=== PATIENT | male | born 1950 | race Caucasian/White ===

== ENCOUNTER → 2018-08-18 | Outpatient (CLI) | payer MEDICARE, OTHER | END | disposition home or self-care (01) | LOC: SURG 09:33 | PROVIDERS: ATTEND Anesthesiology Pain Medicine | DX: M48.061 Spinal stenosis, lumbar region without neurogenic claudication (principal); G89.29 Other chronic pain | CPT/HCPCS: 99204 ==

== ENCOUNTER → 2019-10-06 | Outpatient (CLI) | payer OTHER | END | disposition home or self-care (01) | LOC: LAB 11:17 | PROVIDERS: ATTEND Internal Medicine | DX: Z01.818 Encounter for other preprocedural examination (principal); Z11.59 Encounter for screening for other viral diseases | CPT/HCPCS: C9803; U0003; 36415 ==

== ENCOUNTER → 2019-10-10 | Outpatient (CLI) | payer OTHER | END | disposition home or self-care (01) | LOC: LAB 12:55 | PROVIDERS: ATTEND Nurse Anesthetist, Certified Registered | DX: Z01.818 Encounter for other preprocedural examination (principal); Z11.59 Encounter for screening for other viral diseases | CPT/HCPCS: 36415; U0003 ==

== ENCOUNTER → 2020-03-07 | Outpatient (CLI) | payer OTHER ==
[~2020-03-07] MED LIST: 0.9 % SODIUM CHLORIDE 10 ML VIAL. ONE; ALPR2TAB2 PO; AMLO1TAB93 PO; ASPI-630 PO; ATOR10TA60 PO; CYCL-331 PO; DEXAMETHASONE SOD PHOS 10 MG/ML VIAL. ONE; IOHEXOL 300 MG/ML 50 ML VIAL. ONE; LIDOCAINE 1% PF 30 ML VIAL. ONE; LISI20TA18 PO; METH-184 PO; METH5TAB85 PO; OMEP40CA7 PO; TRAM50TA PO
[2020-03-07 12:07] VITALS: BP 138/65
== END | disposition home or self-care (01) ==
LOC: SURG 11:11
PROVIDERS: ATTEND Anesthesiology
DX: M54.16 Radiculopathy, lumbar region (principal); M48.061 Spinal stenosis, lumbar region without neurogenic claudication; Z79.899 Other long term (current) drug therapy; Z79.82 Long term (current) use of aspirin
CPT/HCPCS: 62323; 72275; J1100; Q9967

== ENCOUNTER → 2020-04-18 | Outpatient (CLI) | payer OTHER ==
[~2020-04-18] MED LIST changes: -0.9 % SODIUM CHLORIDE 10 ML VIAL. ONE; -DEXAMETHASONE SOD PHOS 10 MG/ML VIAL. ONE; -IOHEXOL 300 MG/ML 50 ML VIAL. ONE; -LIDOCAINE 1% PF 30 ML VIAL. ONE; +OMEP40CA45 PO; -OMEP40CA7 PO
[2020-04-18 11:47] VITALS: BP 134/44
== END | disposition home or self-care (01) ==
LOC: SURG 11:38
PROVIDERS: ATTEND Anesthesiology
DX: M54.16 Radiculopathy, lumbar region (principal); M79.18 Myalgia, other site; M48.061 Spinal stenosis, lumbar region without neurogenic claudication; Z79.899 Other long term (current) drug therapy; Z79.82 Long term (current) use of aspirin
CPT/HCPCS: 99213; G0463

== ENCOUNTER → 2020-05-09 | Day surgery (SDC) | payer OTHER ==
[~2020-05-09] MED LIST changes: +BUPIVACAINE MPF 0.25% 10 ML VIAL. ONE; +LIDOCAINE 1% PF 30 ML VIAL. ONE
[2020-05-09 14:24] VITALS: BP 125/61
== END | disposition home or self-care (01) ==
LOC: SURG 13:25
PROVIDERS: ATTEND Anesthesiology
DX: M47.816 Spondylosis without myelopathy or radiculopathy, lumbar region (principal); M79.18 Myalgia, other site; Z79.899 Other long term (current) drug therapy; Z79.82 Long term (current) use of aspirin; M48.061 Spinal stenosis, lumbar region without neurogenic claudication
CPT/HCPCS: 64493; 64494; J3490

== ENCOUNTER → 2020-06-20 | Day surgery (SDC) | payer OTHER ==
[~2020-06-20] MED LIST changes: -BUPIVACAINE MPF 0.25% 10 ML VIAL. ONE; -LIDOCAINE 1% PF 30 ML VIAL. ONE
[2020-06-20 14:07] VITALS: BP 136/63
== END | disposition home or self-care (01) ==
LOC: SURG 13:53
PROVIDERS: ATTEND Anesthesiology
DX: M47.816 Spondylosis without myelopathy or radiculopathy, lumbar region (principal); M79.18 Myalgia, other site; M48.061 Spinal stenosis, lumbar region without neurogenic claudication; Z79.899 Other long term (current) drug therapy; Z79.82 Long term (current) use of aspirin
CPT/HCPCS: 99213; G0463

== ENCOUNTER → 2020-07-18 | Day surgery (SDC) | payer OTHER ==
[~2020-07-18] MED LIST changes: +BUPIVACAINE MPF 0.25% 30 ML VIAL. ONE; +LIDOCAINE 1% PF 30 ML VIAL. ONE
[2020-07-18 14:22] VITALS: BP 129/70
== END | disposition home or self-care (01) ==
LOC: SURG 13:14
PROVIDERS: ATTEND Anesthesiology
DX: M47.816 Spondylosis without myelopathy or radiculopathy, lumbar region (principal); M48.061 Spinal stenosis, lumbar region without neurogenic claudication; Z79.899 Other long term (current) drug therapy; Z79.82 Long term (current) use of aspirin
CPT/HCPCS: 64493; 64494; J3490

== ENCOUNTER 2021-02-01 11:39 | Emergency (ER) | payer OTHER ==
[~2021-02-01] VITALS: Ht 167.6 cm; Wt 68.0 kg
[~2021-02-01 11:39] MED LIST changes: -BUPIVACAINE MPF 0.25% 30 ML VIAL. ONE; -CYCL-331 PO; +CYCL10TA19 PO; -LIDOCAINE 1% PF 30 ML VIAL. ONE; -OMEP40CA45 PO; +OMEP40CA7 PO
[2021-02-01 12:10] VITALS: BP 136/53
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
== END 2021-02-01 13:25 | disposition home or self-care (01) ==
LOC: ER 11:39
DX: M54.2 Cervicalgia (principal); V43.52XA Car driver injured in collision with other type car in traffic accident, initial encounter; Y93.89 Activity, other specified; Y92.488 Other paved roadways as the place of occurrence of the external cause; Y99.8 Other external cause status
CPT/HCPCS: 72040; 72072; 99284-25

== ENCOUNTER 2021-06-19 17:20 | Observation (INO) | payer OTHER ==
[~2021-06-19] VITALS: Ht 167.6 cm; Wt 68.0 kg
--- NOTE | 2021-06-19 17:31 | PHYS DOC ---
Past History Past Surgical History: Cervical Fusion (PHILL LOPEZ MD) Alcohol Use: Occasionally (PHILL LOPEZ MD) General Adult EDM: Chief Complaint: WEAKNESS/GENERALIZED HPI: HPI: Patient is a 70-year-old male brought in by EMS for weakness and falls. Patient says over the past 3 days he has had no appetite and has not had a bowel movement. States he is fallen 3 times today. Has had to have his son help him get back up, has not able to get himself up off the floor. Patient denies any head injury or loss of consciousness. Complaining of pain in bilateral abdomen, worse on the left. Patient states he has a history of BPH and urinary retention. Denies any vomiting, fevers, chills. States has had a slight cough that is nonproductive. Has had his Covid, influenza, and pneumonia vaccines. (PHILL LOPEZ MD) Review of Systems: Review of Systems: All other systems within normal limits except for as noted in the HPI (PHILL LOPEZ MD) Allergies: Allergies: Allergies Coded Allergies Type Severity Reaction Last Updated Verified gabapentin Adverse Reaction Unknown Nausea 02/01/21 Yes (PHILL LOEPZ MD) Physical Exam: PE: Constitutional: Well developed, well nourished, no acute distress, non-toxic appearance. [] HENT: Normocephalic, atraumatic, bilateral external ears normal, nose normal. [] Eyes: PERRLA, conjunctiva normal, no discharge. [] Neck: No rigidity, supple, no stridor. [] Cardiovascular: Regular rate and rhythm, brisk cap refill [] Lungs & Thorax: Non labored symmetric respirations, no tachypnea or respiratory distress [] Abdomen: Soft, nondistended, bilateral tenderness palpation in lower abdomen, no guarding or rebound. Skin: Warm, dry, no erythema, no rash. [] Back: Unremarkable Extremities: No deformities, range of motion grossly intact, no lower extremity edema [] Neurologic: Alert and oriented X 3, no focal deficits noted. [] Psychologic: Affect normal, judgement normal, mood normal. [] (PHILL LOPEZ MD) EKG: EKG: Sinus rhythm, heart rate 88 bpm, normal axis, no STEMI [] (PHILL LOPEZ MD) Radiology/Procedures: Radiology/Procedures: [] (PHILL LOPEZ MD) Heart Score: C/O Chest Pain: N/A Risk Factors: Risk Factors: DM, Current or recent (<one month) smoker, HTN, HLP, family history of CAD, obesity. Risk Scores: Score 0 - 3: 2.5% MACE over next 6 weeks - Discharge Home Score 4 - 6: 20.3% MACE over next 6 weeks - Admit for Clinical Observation Score 7 - 10: 72.7% MACE over next 6 weeks - Early Invasive Strategies (PHILL LOPEZ MD) Course & Med Decision Making: Course & Med Decision Making Pertinent Labs and Imaging studies reviewed. (See chart for details) [] (PHILL LOPEZ MD) Course & Med Decision Making Patient care handed off to me at checkout pending disposition. Patient awake alert and oriented no acute distress. NIH of 0. Laboratory analysis not concerning. EKG and troponin not concerning. Imaging of the head through the pelvis not concerning. Even though patient's laboratory analysis work-up and imaging are reassuring, patient appears to be having some trouble thriving at home by himself. Due to the concern for continued falling and failure to thrive at home by himself he was admitted to [facility]. Patient grateful, verbalized understanding and agreed with plan of admission. (AUGUSTUS ARORA MD) Dragon Disclaimer: Dragon Disclaimer: This electronic medical record was generated, in whole or in part, using a voice recognition dictation system. (PHILL LOPEZ MD) Departure Departure: Impression: Primary Impression: Failure to thrive Additional Impressions: Fall at home TAMRA (acute kidney injury) Disposition: ADMITTED INPATIENT Admitting Physician: Joshua Borges (AUGUSTUS ARORA MD) Condition: STABLE Referrals: ALYSSA SCALES MD (PCP) PHILL LOPEZ MD Jun 19, 2021 17:31 AUGUSTUS ARORA MD Jun 19, 2021 21:01
--- NOTE | 2021-06-19 17:50 | EKG ---
[address] [address] Test Date: 2021-06-19 Test Time: 17:36:58 Pat Name: SARIKA FARMER Department: Room: Gender: M Home Health Aid: [facility] : 1950 Requested By: PHILL LOPEZ Order Number: [id number] Reading MD: Thomas Julian Measurements Intervals Prospect Rate: 88 P: 57 DE: 146 QRS: 48 QRSD: 82 T: 75 QT: 334 QTc: 407 Interpretive Statements SINUS RHYTHM NORMAL ECG RI6.02 No previous ECG available for comparison Electronically Signed On 06-29-2021 9:03:12 CDT by Thomas Julian
[2021-06-19] MEDS ORDERED: IOHEXOL 350 MG/ML 100 ML VIAL. IV ONE (18:00)
[2021-06-19 18:02] LABS: BASO % 0 % (0-3); EOS % 0 % (0-3); HEMATOCRIT 34.9 % (39.0-53.0); HEMOGLOBIN 11.7 g/dL (13.0-17.5); LYMPH # 0.8 x10^3/uL (1.0-4.8); LYMPH % 18 % (24-48); MEAN CORPUSCULAR HEMOGLOBIN 31 pg (25-35); MEAN CORPUSCULAR HGB CONC 33 g/dL (31-37); MEAN CORPUSCULAR VOLUME 93 fL (79-100); MONO # 0.5 x10^3/uL (0.0-1.1); MONO % 12 % (0-9); NEUT # 3.1 x10^3uL (1.8-7.7); NEUT % 70 % (31-73); PLATELET COUNT 151 x10^3/uL (140-400); RED BLOOD COUNT 3.76 x10^6/uL (4.30-5.70); RED CELL DISTRIBUTION WIDTH 13.6 % (11.5-14.5); WHITE BLOOD COUNT 4.5 x10^3/uL (4.0-11.0)
[2021-06-19 18:07] LABS: CALCIUM 8.7 mg/dL (8.5-10.1); CREATININE 1.5 mg/dL (0.7-1.3); POTASSIUM 3.9 mmol/L (3.5-5.1)
[2021-06-19 18:20] LABS: ALBUMIN 3.6 g/dL (3.4-5.0); ALBUMIN/GLOBULIN RATIO 1.1 (1.0-1.7); MAGNESIUM 1.8 mg/dL (1.8-2.4); PHOSPHORUS 3.6 mg/dL (2.6-4.7); TOTAL BILIRUBIN 0.3 mg/dL (0.2-1.0); TOTAL PROTEIN 6.8 g/dL (6.4-8.2)
--- NOTE | 2021-06-19 18:47 | RAD ---
Exam: CT head and cervical spine INDICATION: Low abdominal pain, fall TECHNIQUE: Sequential axial images through the head and cervical spine were obtained without the admi nistration of IV contrast. Exposure: One or more of the following in the visualized dose reduction techniques were utilized for this examination: 1. Automated exposure control 2. Adjustment of the MA and/or KV according to patient size 3. Use of iterative of reconstructive technique Comparisons: None FINDINGS: Head: No focal parenchymal lesion or hemorrhage is identified. There is no midline shift or sulcal effaceme nt. Mild patchy hypodensity in the periventricular white matter. No acute vascular territory infarction i s identified. Hendrickson-white distinction is preserved. The ventricular system is within normal limits without compression hydrocephalus. The basal cisterns are well maintained. The visualized portions of the paranasal sinuses and mastoid air cells are well-pneumatized. No acute fractures. Cervical spine: Posterior cervical fusion hardware extending from C3 to C6 with laminectomy changes also noted. Vertebral body heights and alignment are well-maintained. Fracture to the cervical spine is not identified. Mild multilevel spondylotic change in cervical spine with degenerative disc disease greatest at C3-C4 , C4-C5 and C5-6. Visualized paraspinal soft tissues are unremarkable. IMPRESSION: No acute intracranial abnormality. Negative CT C-spine for acute traumatic injury. Electronically signed by: Sherry Becker MD (06/19/2021 6:45 PM) [facility]
--- NOTE | 2021-06-19 19:08 | RAD ---
Exam: CT of chest, abdomen and pelvis with contrast INDICATION: Lower abdominal pain, fall TECHNIQUE: Sequential axial images through the chest, abdomen and pelvis obtained following the admin istration of 75 mL of Isovue-370 IV contrast. Sagittal and coronal reformatted images were reconstruc rashel from the axial data and reviewed. 3-D reformatted images were reconstructed from the axial data a nd reviewed. Exposure: One or more of the following in the visualized dose reduction techniques were utilized for this examination: 1. Automated exposure control 2. Adjustment of the MA and/or KV according to patient size 3. Use of iterative of reconstructive technique Comparisons: None FINDINGS: Visualized portions of the thyroid are unremarkable. No enlarged mediastinal lymph nodes are identifi ed. Right size is normal. No pericardial effusion. Thoracic aorta has a normal course and caliber. Pulmon godwin artery is not enlarged. No pulmonary embolus identified within the main, lobar or segmental pulmo nary arteries. Airways are patent. Mild bronchial wall thickening is noted. No consolidation or pneumothorax. No dilan picious lung nodules. No pleural effusion or thickening. Liver, spleen, pancreas, gallbladder and adrenals are unremarkable. No perinephric inflammation or hydronephrosis. No renal or ureteral calculi are identified. Bladder is partially distended and appears to have mild wall thickening. Prostate is not enlarged. Large and small bowel are unremarkable. Appendix is nonidentified. No free intra-abdominal air or flu id. No obstruction. Abdominal aorta has a normal course and caliber. Abdominal vasculature is patent. No enlarged intra-abdominal lymph nodes are identified. No suspicious osseous lesions or acute fractures. No suspicious osseous lesions or acute fractures. IMPRESSION: 1. No pulmonary embolus identified within the main, lobar or segmental pulmonary arteries. 2. No sequela of acute traumatic injury identified within the chest, abdomen or pelvis. Electronically signed by: Sherry Becker MD (06/19/2021 7:05 PM) [facility]
[2021-06-19] MEDS ORDERED: IV RINGERS SOLUTION,LACTATED 1,000 ML IV ONE (21:15)
[2021-06-19 22:07] LABS: BARBITURATES NEG (NEG); BENZODIAZEPINES NEG (NEG); CANNABINOIDS NEG (NEG); COCAINE NEG (NEG); METHADONE NEG (NEG); OPIATES NEG (NEG); PHENCYCLIDINE NEG (NEG)
[2021-06-19 22:12] LABS: AMPHETAMINE/METHAMPHETAMINE NEG (NEG)
[2021-06-19 22:15] LABS: CLARITY,URINE CLEAR; COLOR,URINE YELLOW; GLUCOSE,URINE NEG (NEG); NITRITE,URINE NEG (NEG); RBC,URINE OCC /HPF (0-2); UROBILINOGEN,URINE 0.2 mg/dL (0.2 mg/dL)
[2021-06-19 22:16] LABS: BACTERIA,URINE FEW /HPF (0-FEW); WBC,URINE >40 /HPF (0-4)
[2021-06-19 22:16] LABS: INFLUENZA A PATIENT NEGATIVE (NEGATIVE); INFLUENZA B PATIENT NEGATIVE (NEGATIVE)
[2021-06-19 23:45] VITALS: BP 160/77
[2021-06-20] VITALS (8 sets, daily range): BP systolic 123–175; BP diastolic 65–82
[2021-06-20 06:12] LABS: BASO % 1 % (0-3); EOS % 0 % (0-3); HEMATOCRIT 34.2 % (39.0-53.0); HEMOGLOBIN 11.5 g/dL (13.0-17.5); LYMPH # 0.9 x10^3/uL (1.0-4.8); LYMPH % 17 % (24-48); MEAN CORPUSCULAR HEMOGLOBIN 31 pg (25-35); MEAN CORPUSCULAR HGB CONC 34 g/dL (31-37); MEAN CORPUSCULAR VOLUME 93 fL (79-100); MONO # 0.8 x10^3/uL (0.0-1.1); MONO % 15 % (0-9); NEUT # 3.3 x10^3uL (1.8-7.7); NEUT % 67 % (31-73); PLATELET COUNT 136 x10^3/uL (140-400); RED BLOOD COUNT 3.68 x10^6/uL (4.30-5.70); RED CELL DISTRIBUTION WIDTH 13.6 % (11.5-14.5)
[2021-06-20 06:22] LABS: CALCIUM 8.4 mg/dL (8.5-10.1); CREATININE 1.3 mg/dL (0.7-1.3); GFR 54.3; POTASSIUM 3.7 mmol/L (3.5-5.1)
[2021-06-20] MEDS ORDERED: NON FORMULARY ITEM (Alprazolam (Xanax) 2 MG) PO PRN (15:45)
[2021-06-20] MEDS ORDERED: traMADol 50 MG TABLET PO PRN (15:45)
--- NOTE | 2021-06-20 17:02 | HP ---
DATE OF SERVICE: 06/20/2021 ADMIT DATE: 06/19/2021 HISTORY OF PRESENT ILLNESS: The patient is a 70-year-old male patient who presented to the Emergency Room with a complaint of generalized weakness and recurrent falls that has been going on for the last 3 days. He also complained of anorexia and has not had any bowel movement. On the day of admission, he has fallen 3 times. Has had to have his son helped him to get back up and has not been able to get himself off the floor. The patient denies any head injury or loss of consciousness. Did complain of pain in bilateral abdomen, worse in the left side. She stated that he has benign prostatic hypertrophy and urinary retention. He apparently was started recently by his primary care physician, Dr. Cary on Flomax and that made his incontinence worse according to him. He denied any nausea or vomiting. Denied any diarrhea, but did complain of constipation. Did have a slight cough that is nonproductive. Has had his COVID vaccine, influenza and pneumonia vaccines. He was extensively investigated in the Emergency Room and has had lab work as well as imaging studies. His lab work showed that he has slightly impaired kidney function with serum creatinine of 1.5. He has also mild normochromic normocytic anemia, normal white cell count and platelets. His D-dimer was only 0.36. Urinalysis showed that he has more than a small amount of leukocyte esterase, more than 40 wbc's and few bacteria. Toxic screen was negative and his influenza A and B as well as coronavirus by PCR were negative. Has had a CT scan of the head and cervical spine, which showed no acute intracranial abnormalities and negative CT scan C-spine for acute traumatic injury. He also had CT scan of the chest, abdomen and pelvis with contrast and it showed that the patient's visualized portion of the thyroid are unremarkable. No enlarged mediastinal lymph nodes are identified. The heart size is normal. No pericardial effusion. Thoracic aorta has a normal course and caliber. Pulmonary arteries are not enlarged. No pulmonary emboli identified within the main lobar and segmental pulmonary arteries. Airways are patent. Mild bronchial wall thickening is noted. No consolidation, pneumothorax or effusion and basically the patient has no pulmonary embolus identified within the main lobar or segmental pulmonary arteries. There is no sequelae of acute traumatic injury identified within the chest, abdomen and pelvis. The patient was admitted with generalized weakness and recurrent falls, has also acute kidney injury. The patient was given a liter of lactated Ringer. PAST MEDICAL HISTORY: Significant for hypertension; hyperlipidemia; benign prostatic hypertrophy; severe sensorineural deafness, requiring bilateral hearing aid. PAST SURGICAL HISTORY: Significant for neck surgery, bilateral cataract extraction. Has had colonoscopy. ALLERGIES: ALLERGIC TO GABAPENTIN. MEDICATIONS: He is currently on the following medications: He is on cyclobenzaprine 10 mg daily, atorvastatin 10 mg at bedtime, amlodipine/olmesartan or Dionne 10/20 mg daily, lisinopril 20 mg once a day, aspirin 81 mg once a day, tramadol 50 mg every 6 hours, alprazolam 2 mg p.o. every 6 hours, omeprazole 40 mg daily. He is on methimazole 15 mg daily. FAMILY HISTORY: He has 3 brothers still alive and 2 brothers are . He has all 3 sisters . His father when he was only 3 years old and his mother remarried and adopted him, she at age of 85. SOCIAL HISTORY: He is , has 1 son and 1 daughter and 1 stepdaughter. He is ex-smoker, quit about 10 years ago. He occasionally or rarely drinks alcohol and he is a retired warehouse selector. REVIEW OF SYSTEMS: The patient has bilateral cataract requiring cataract extraction, but denied any glaucoma or macular degeneration. Has severe bilateral sensorineural deafness, requiring bilateral hearing aids. Denied any stuffy nose, nosebleed or postnasal drip. Denied any sore throat, sore tongue, toothache, hoarseness of voice or difficulty swallowing. Denied any nausea, vomiting, diarrhea, but did complain of constipation. He does have dysuria and frequency as well as nocturia. Denied any hematuria. Denied any chest pain, shortness of breath, orthopnea or paroxysmal nocturnal dyspnea. Did complain of cough, which is nonproductive. Denied any palpitation, or lightheadedness. He did complain of dizziness actually especially when he stands or sits on the edge of the bed and tries to stand. PHYSICAL EXAMINATION: GENERAL: On arrival to the Emergency Room, the patient looked well and was clearly in no apparent respiratory distress. He is somewhat pale, not jaundiced, cyanosed, no lymphadenopathy, no thyromegaly, no jugular venous distention. No limb edema. VITAL SIGNS: His heart rate was 93, blood pressure was 166/79, temperature was 98, respiratory rate was 16 and oxygen saturation was 99% on room air. HEAD, EYES, EARS, NOSE, AND THROAT: Normocephalic, atraumatic. NECK: Supple. HEART: Normal first and second heart sounds. No gallop, rub or murmur. CHEST: Clear to auscultation, no crepitation or rhonchi. ABDOMEN: Distended, soft, nontender. NEUROLOGIC: He was awake, alert, responding appropriately. Cranial nerves intact. He moves extremities without difficulty. He stated he ambulates with a walker and a cane. LABORATORY WORK: On arrival showed a white cell count of 4.5, hemoglobin 11.7, hematocrit 35, MCV 93, and platelet count of 151,000 with a normal manual differential. His chemistry showed a serum sodium 140, potassium 3.9, chloride 104, bicarbonate 25, anion gap of 11, BUN 20, creatinine 1.5. Estimated GFR was 46 mL per minute. Glucose 117. Lactic acid was 1.3, calcium was 8.7, phosphorus 3.6, magnesium was 1.8. Total bilirubin, AST, ALT, alkaline phosphatase were normal. Troponin I high sensitivity was only 17. Beta natriuretic peptide was 874. Total protein 6.8, albumin 3.6. His D-dimer was 0.36. Urinalysis showed the urine was yellow, clear with a pH of 5.5, specific gravity 1.015, The urine was negative for protein, glucose, trace of ketones, trace of blood, negative for nitrite, small amount of leukocyte esterase, occasional rbc's, more than 40 wbc's, very few bacteria. Toxic screen was negative and his influenza A and B were negative as well as coronavirus by PCR was negative. ASSESSMENT AND PLAN: In summary, this is a 70-year-old male patient who was admitted with generalized weakness and recurrent falls. He fell 3 times yesterday and the patient received 1 liter of lactated Ringer. The original impression by the ER physician is that he just failure to thrive and the patient was admitted just for physical therapy; however, he was admitted basically to consult the physical therapy as well as occupational therapy and decide the further management accordingly. NEHAL/CAROLINE/SORIN DR: NEHAL/bj TID: [id number]
[2021-06-20] MEDS ORDERED: ALPRAZolam 0.5 MG TABLET PO PRN ×2 (19:15→19:30)
[2021-06-20] MEDS: amLODIPine BESYLATE 10 MG TABLET PO SCH (19:30)
[2021-06-20] MEDS ORDERED: AMLO-187 PO (19:35)
[2021-06-20] MEDS ORDERED: METO25TA4 PO (19:35)
[2021-06-20] MEDS ORDERED: ALPR0.5T6 PO (19:35)
[2021-06-20] MEDS ORDERED: CELE200C PO (19:35)
[2021-06-20] MEDS ORDERED: METOPROLOL TART IMMED RELEASE 25 MG TABLET. PO ONE (19:45)
[2021-06-20] MEDS ORDERED: CELECOXIB 100 MG CAPSULE PO SCH (21:00)
[2021-06-20] MEDS: METOPROLOL TART IMMED RELEASE 25 MG TABLET. PO SCH (21:13)
--- NOTE | 2021-06-21 02:54 | PN ---
DATE: 06/20/2021 SUBJECTIVE: The patient is resting, slightly propped up in bed, in no apparent distress. He continued to feel dizzy, although he has not had any falls here so far. Denied any chest pain. Denied anything spinning around. PHYSICAL EXAMINATION: GENERAL: When I examined him today, he looked pale, not jaundiced or cyanosed. No lymphadenopathy, no thyromegaly, no jugular venous distention. No lower limb edema. VITAL SIGNS: His heart rate was 87, blood pressure was 161/72, temperature was 98.3, respiratory rate was 18 and oxygen saturation was 97% on room air. HEAD, EYES, EARS, NOSE, AND THROAT: Normocephalic, atraumatic. NECK: Supple. HEART: Normal first and second heart sounds. No gallop or murmur. CHEST: Clear to auscultation. No crepitation or rhonchi. ABDOMEN: Distended, soft, nontender. No guarding or rigidity. No organomegaly. All hernial orifice intact. Bowel sounds normal. NEUROLOGIC: He was awake, alert, responding appropriately. All cranial nerves intact. He moves extremities without difficulty. However, he does continue to complain of being dizzy when he attempts to get out of the bed. His intake and output are incompletely recorded. LABORATORY DATA: Today showed a white cell count of 5000, hemoglobin 11.5, hematocrit 34, MCV 93 and platelet count of 136,000 with normal manual differential. His chemistry showed serum sodium 144, potassium 3.7, chloride 107, bicarbonate 25, anion gap of 12, BUN 19, creatinine 1.3. Estimated GFR was 54 mL per minute. His glucose was 92 and calcium was 8.4. ASSESSMENT: This is a 70-year-old male patient feeling dizzy and has had multiple falls. The patient is on a multitude of medications that might be contributing to this including multiple antihypertensive medications including 20 mg of lisinopril, 10 mg of amlodipine and 20 mg Benicar. He is also on cyclobenzaprine 10 mg daily. He was started on Flomax recently and he is also on alprazolam 2 mg every 6 hours. PLAN: My plan is to obviously check his orthostatics. I am going to start him on telemetry to monitor his heart rate and see if he has any evidence of arrhythmia or high-grade heart block. I will check his orthostatics and will definitely cut down or discontinue his cyclobenzaprine and discontinue also the amlodipine and olmesartan. He is apparently thyrotoxic and he is already on methimazole. We will check his thyroid function also. We will consult the senior technical support analyst to assist with his management. QUANG DR: Ada TID: [id number]
[2021-06-21 06:09] VITALS: BP 144/75
[2021-06-21 06:13] LABS: HEMATOCRIT 34.1 % (39.0-53.0); HEMOGLOBIN 11.3 g/dL (13.0-17.5); RED BLOOD COUNT 3.66 x10^6/uL (4.30-5.70); RED CELL DISTRIBUTION WIDTH 13.6 % (11.5-14.5); WHITE BLOOD COUNT 5.2 x10^3/uL (4.0-11.0)
[2021-06-21 06:42] LABS: CALCIUM 8.5 mg/dL (8.5-10.1); CREATININE 1.2 mg/dL (0.7-1.3); GFR 59.5; POTASSIUM 3.7 mmol/L (3.5-5.1); TOTAL BILIRUBIN 0.2 mg/dL (0.2-1.0); TOTAL PROTEIN 6.1 g/dL (6.4-8.2)
[2021-06-21] MEDS ORDERED: PANTOPRAZOLE 40 MG TABLET. PO SCH (07:30)
--- NOTE | 2021-06-21 08:21 | PDOC2 ---
OH BARNETT AKI 06/21/21 0820: CARDIAC CONSULT DATE OF CONSULT DOS: DATE: 06/21/21 TIME: 08:13 REASON FOR CONSULT Reason for Consult recurrent syncope REFERRING PHYSICIAN Referring Physician Dr. Borges SOURCE Source: Chart review, Patient HPI History of Present Illness This is a 70 yo male who presented secondary to weakness, falls, and decreased appetite. Patient has 3 falls on day of arrival. Luckily, son was there to assist him in getting up as he reports his legs are weak when he falls. Cannot describe falls. Denies any precipitating dizziness, lightheadedness. Does no trip and fall. Not sure if his legs give out. Reports that he "just falls". Bill any LOC with falls. Does reports that he has hit his head. Falls do not always occur upon standing. He can fall when he has been up for awhile or is walking. He denies any chest pain, shortness of breath, palpitations, diaphoresis, or nausea/vomiting. PAST MEDICAL HISTORY Cardiovascular: CAD, HTN, hyperipidemia Psych: Anxiety Renal/: Benign prostatic enlarg. Endocrine: Hypothyroidism PAST SURGICAL HISTORY Past Surgical History: Cataract Removal, Other (neck surgery ) FAMILY HISTORY Family History: Other (noncontributory ) SOCIAL HISTORY Smoke: Quit ALCOHOL: rare Drugs: None Lives: Alone CURRENT MEDICATIONS Current Medications Current Medications Iohexol (Omnipaque 350 Mg/ml) 100 ml 1X ONCE IV Last administered on 06/19/21at 18:25; Start 06/19/21 at 18:00; Stop 06/19/21 at 18:16; Status DC Lactated Ringer's 1,000 ml @ 100 mls/hr 1X ONCE IV Last administered on 06/19/21at 23:21; Start 06/19/21 at 21:15; Stop 06/20/21 at 07:14; Status DC Aspirin (Aspirin Chewable) 81 mg DAILY PO ; Start 06/21/21 at 09:00 Atorvastatin Calcium (Lipitor) 10 mg DAILY PO ; Start 06/21/21 at 09:00 Cyclobenzaprine HCl (Flexeril) 10 mg DAILY PO ; Start 06/21/21 at 09:00; Stop 06/20/21 at 16:04; Status DC Lisinopril (Prinivil) 20 mg DAILY PO ; Start 06/21/21 at 09:00; Stop 06/20/21 at 16:05; Status DC Methimazole (Tapazole) 5 mg DAILY PO ; Start 06/21/21 at 09:00; Stop 06/20/21 at 19:57; Status DC Tramadol HCl (Ultram) 50 mg PRN Q6HRS PRN PO PAIN; Start 06/20/21 at 15:45 Non-Formulary Medication (Alprazolam (Xanax)) 2 mg PRN Q6HRS PRN PO ANXIETY / AGITATION; Start 06/20/21 at 15:45; Stop 06/20/21 at 16:04; Status DC Non-Formulary Medication (Amlodipine Bes/ Olmesartan Med (Dionne 10-20 Mg Tablet)) 1 tab DAILY PO ; Start 06/21/21 at 09:00; Stop 06/20/21 at 19:57; Status DC Non-Formulary Medication (Methimazole (Tapazole)) 10 mg DAILY PO ; Start 06/21/21 at 09:00; Stop 06/20/21 at 19:57; Status DC Pantoprazole Sodium (Protonix) 40 mg DAILYAC PO ; Start 06/21/21 at 07:30 Alprazolam (Xanax) 0.5 mg PRN Q6HRS PRN PO ANXIETY / AGITATION Last administered on 06/20/21at 23:20; Start 06/20/21 at 19:15; Stop 06/21/21 at 07:38; Status DC Alprazolam (Xanax) 0.5 mg PRN DAILY PRN PO ANXIETY / AGITATION; Start 06/20/21 at 19:30 Amlodipine Besylate (Norvasc) 10 mg DAILY PO ; Start 06/20/21 at 19:30 Metoprolol Tartrate (Lopressor) 25 mg DAILY PO Last administered on 06/20/21at 21:13; Start 06/20/21 at 19:30 Celecoxib (CeleBREX) 200 mg BID PO ; Start 06/20/21 at 21:00; Stop 06/20/21 at 21:16; Status DC Metoprolol Tartrate (Lopressor) 25 mg 1X ONCE PO ; Start 06/20/21 at 19:45; Stop 06/20/21 at 19:53; Status DC Active Scripts Active Reported Alprazolam 0.5 Mg Tablet 1 Tab PO PRN DAILY PRN Celebrex (Celecoxib) 200 Mg Capsule 200 Mg PO BID Amlodipine Besylate 10 Mg Tablet 1 Tab PO DAILY Metoprolol Tartrate 25 Mg Tablet 1 Tab PO DAILY Aspirin 81 Mg Tab.chew 81 Mg PO DAILY Omeprazole 40 Mg Capsule.dr 1 Cap PO DAILY Atorvastatin Calcium 10 Mg Tablet 10 Mg PO DAILY Tramadol Hcl (Tramadol HCl) 50 Mg Tablet 50 Mg PO PRN Q6HRS PRN ALLERGIES Allergies: Coded Allergies: gabapentin (Verified Adverse Reaction, Unknown, Nausea, 02/01/21) ROS Review of Systems 14 point ROS conducted with pertinent positives noted above in HPI PHYSICAL EXAM General: Alert, Oriented X3, Cooperative, No acute distress HEENT: Atraumatic Lungs: Clear to auscultation Heart: Regular rate Abdomen: Soft Extremities: No edema, Normal pulses Skin: No breakdown Neuro: Normal speech, Sensation intact Psych/Mental Status: Mental status NL, Mood NL MUSCULOSKELETAL: Osteoarthritic changes both hands VITALS Vital Signs Vital Signs Date Time Temp Pulse Resp B/P (MAP) Pulse Ox O2 Delivery O2 Flow Rate FiO2 06/21/21 06:09 97.6 63 18 144/75 (98) 95 Room Air LABS LABS Laboratory Tests Test 06/19/21 11:30 06/19/21 17:28 06/19/21 18:28 06/19/21 21:33 Thyroid Stimulating Hormone (TSH) 0.167 uIU/mL (0.358-3.740) White Blood Count 4.5 x10^3/uL (4.0-11.0) Red Blood Count 3.76 x10^6/uL (4.30-5.70) Hemoglobin 11.7 g/dL (13.0-17.5) Hematocrit 34.9 % (39.0-53.0) Mean Corpuscular Volume 93 fL (79-100) Mean Corpuscular Hemoglobin 31 pg (25-35) Mean Corpuscular Hemoglobin Concent 33 g/dL (31-37) Red Cell Distribution Width 13.6 % (11.5-14.5) Platelet Count 151 x10^3/uL (140-400) Neutrophils (%) (Auto) 70 % (31-73) Lymphocytes (%) (Auto) 18 % (24-48) Monocytes (%) (Auto) 12 % (0-9) Eosinophils (%) (Auto) 0 % (0-3) Basophils (%) (Auto) 0 % (0-3) Neutrophils # (Auto) 3.1 x10^3uL (1.8-7.7) Lymphocytes # (Auto) 0.8 x10^3/uL (1.0-4.8) Monocytes # (Auto) 0.5 x10^3/uL (0.0-1.1) Eosinophils # (Auto) 0.0 x10^3/uL (0.0-0.7) Basophils # (Auto) 0.0 x10^3/uL (0.0-0.2) Sodium Level 140 mmol/L (136-145) Potassium Level 3.9 mmol/L (3.5-5.1) Chloride Level 104 mmol/L (98-107) Carbon Dioxide Level 25 mmol/L (21-32) Anion Gap 11 (6-14) Blood Urea Nitrogen 20 mg/dL (8-26) Creatinine 1.5 mg/dL (0.7-1.3) Estimated GFR (Cockcroft-Gault) 46.0 BUN/Creatinine Ratio 13 (6-20) Glucose Level 117 mg/dL (70-99) Lactic Acid Level 1.3 mmol/L (0.4-2.0) Calcium Level 8.7 mg/dL (8.5-10.1) Phosphorus Level 3.6 mg/dL (2.6-4.7) Magnesium Level 1.8 mg/dL (1.8-2.4) Total Bilirubin 0.3 mg/dL (0.2-1.0) Aspartate Amino Transf (AST/SGOT) 30 U/L (15-37) Alanine Aminotransferase (ALT/SGPT) 29 U/L (16-63) Alkaline Phosphatase 93 U/L (46-116) Troponin I High Sensitivity 17 ng/L (4-75) AH-Wiu-U-Type Natriuretic Peptide 874 pg/mL (0-124) Total Protein 6.8 g/dL (6.4-8.2) Albumin 3.6 g/dL (3.4-5.0) Albumin/Globulin Ratio 1.1 (1.0-1.7) D-Dimer ([place]) 0.36 mg/L (0.00-0.50) Urine Collection Type Unknown Urine Color Yellow Urine Clarity Clear Urine pH 5.5 Urine Specific Calvin 1.015 Urine Protein Neg (NEG-TRACE) Urine Glucose (UA) Neg mg/dL (NEG) Urine Ketones (Stick) Trace mg/dL (NEG) Urine Blood Trace (NEG) Urine Nitrite Neg (NEG) Urine Bilirubin Neg (NEG) Urine Urobilinogen Dipstick 0.2 mg/dL (0.2 mg/dL) Urine Leukocyte Esterase Small (NEG) Urine RBC Occ /HPF (0-2) Urine WBC >40 /HPF (0-4) Urine Squamous Epithelial Cells None /LPF Urine Bacteria Few /HPF (0-FEW) Urine Opiates Screen Neg (NEG) Urine Methadone Screen Neg (NEG) Urine Barbiturates Neg (NEG) Urine Phencyclidine Screen Neg (NEG) Urine Amphetamine/Methamphetamine Neg (NEG) Urine Benzodiazepines Screen Neg (NEG) Urine Cocaine Screen Neg (NEG) Urine Cannabinoids Screen Neg (NEG) Urine Ethyl Alcohol Neg (NEG) Test 06/19/21 21:36 06/20/21 05:54 06/21/21 05:52 Coronavirus (COVID-19)(PCR) Not detected (NOT DETECTD) Influenza Type A (Rapid) Negative (NEGATIVE) Influenza Type B (Rapid) Negative (NEGATIVE) SARS-CoV-2 Antigen (Rapid) Negative (NEGATIVE) White Blood Count 5.0 x10^3/uL (4.0-11.0) 5.2 x10^3/uL (4.0-11.0) Red Blood Count 3.68 x10^6/uL (4.30-5.70) 3.66 x10^6/uL (4.30-5.70) Hemoglobin 11.5 g/dL (13.0-17.5) 11.3 g/dL (13.0-17.5) Hematocrit 34.2 % (39.0-53.0) 34.1 % (39.0-53.0) Mean Corpuscular Volume 93 fL (79-100) 93 fL (79-100) Mean Corpuscular Hemoglobin 31 pg (25-35) 31 pg (25-35) Mean Corpuscular Hemoglobin Concent 34 g/dL (31-37) 33 g/dL (31-37) Red Cell Distribution Width 13.6 % (11.5-14.5) 13.6 % (11.5-14.5) Platelet Count 136 x10^3/uL (140-400) 152 x10^3/uL (140-400) Neutrophils (%) (Auto) 67 % (31-73) Lymphocytes (%) (Auto) 17 % (24-48) Monocytes (%) (Auto) 15 % (0-9) Eosinophils (%) (Auto) 0 % (0-3) Basophils (%) (Auto) 1 % (0-3) Neutrophils # (Auto) 3.3 x10^3uL (1.8-7.7) Lymphocytes # (Auto) 0.9 x10^3/uL (1.0-4.8) Monocytes # (Auto) 0.8 x10^3/uL (0.0-1.1) Eosinophils # (Auto) 0.0 x10^3/uL (0.0-0.7) Basophils # (Auto) 0.0 x10^3/uL (0.0-0.2) Sodium Level 144 mmol/L (136-145) 146 mmol/L (136-145) Potassium Level 3.7 mmol/L (3.5-5.1) 3.7 mmol/L (3.5-5.1) Chloride Level 107 mmol/L (98-107) 109 mmol/L (98-107) Carbon Dioxide Level 25 mmol/L (21-32) 25 mmol/L (21-32) Anion Gap 12 (6-14) 12 (6-14) Blood Urea Nitrogen 19 mg/dL (8-26) 15 mg/dL (8-26) Creatinine 1.3 mg/dL (0.7-1.3) 1.2 mg/dL (0.7-1.3) Estimated GFR (Cockcroft-Gault) 54.3 59.5 Glucose Level 92 mg/dL (70-99) 91 mg/dL (70-99) Calcium Level 8.4 mg/dL (8.5-10.1) 8.5 mg/dL (8.5-10.1) BUN/Creatinine Ratio 13 (6-20) Total Bilirubin 0.2 mg/dL (0.2-1.0) Aspartate Amino Transf (AST/SGOT) 26 U/L (15-37) Alanine Aminotransferase (ALT/SGPT) 29 U/L (16-63) Alkaline Phosphatase 84 U/L (46-116) Total Protein 6.1 g/dL (6.4-8.2) Albumin 3.0 g/dL (3.4-5.0) Albumin/Globulin Ratio 1.0 (1.0-1.7) ASSESSMENT/PLAN Assessment/Plan 1. Weakness, falls; CT head without acute findings. Mild orthostasis noted. no acute events noted on tele. 2. TAMRA, dehydration 3. CAD; clinically stable 4. Hypertension; now controlled 5. Hyperlipidemia Recommendations Recheck orthos Encourged oral hydration PT/OT Outpatient echo and event monitor as arranged Consider outpatient ischemic evaluation Follow up in our office with Dr. Bhatt has been scheduled RICHARD BHATT MD 06/21/21 1947: OH BARNETT APRN Jun 21, 2021 08:20 RICHARD BHATT MD Jun 21, 2021 19:47
[2021-06-21] MEDS: METOPROLOL TART IMMED RELEASE 25 MG TABLET. PO SCH (08:46)
[2021-06-21] MEDS: amLODIPine BESYLATE 10 MG TABLET PO SCH (08:47)
[2021-06-21] MEDS ORDERED: OLMESARTAN MED PO SCH (09:00)
[2021-06-21] MEDS ORDERED: ATORVASTATIN CALCIUM 10 MG TABLET. PO SCH (09:00)
[2021-06-21] MEDS ORDERED: LISINOPRIL 20 MG TABLET PO SCH (09:00)
[2021-06-21] MEDS ORDERED: CYCLOBENZAPRINE 10 MG TABLET. PO SCH (09:00)
[2021-06-21] MEDS ORDERED: AMLODIPINE BES PO SCH (09:00)
[2021-06-21] MEDS ORDERED: METHIMAZOLE 10 MG PO SCH (09:00)
[2021-06-21] MEDS ORDERED: ASPIRIN CHEWABLE 81 MG TABLET. PO SCH (09:00)
[2021-06-21 11:00] VITALS: BP 148/75
[2021-06-21 11:10] VITALS: BP 119/68
[2021-06-21 11:12] VITALS: BP 108/68
[2021-06-21] MEDS ORDERED: LISI40TA6 PO (11:59)
[2021-06-21] MEDS ORDERED: METO-239 PO (11:59)
--- NOTE | 2021-06-21 12:01 | DISCH ---
HOME HEALTH DISCHARGE/MEDS DISCHARGE INFORMATION: Discharge Date: Jun 21, 2021 Final Diagnosis: Problems Medical Problems: (1) TAMRA (acute kidney injury) Status: Acute (2) Failure to thrive Status: Acute (3) Fall at home Status: Acute Condition on Discharge: Stable CODE STATUS: Code Status: Full HOME HEALTH: Face to Face: I certify this patient is under my care and that I, or a nurse practitioner or physician's food and beverage assistant manager working with me, had a face to face encounter that meets the physician face to face encounter requirements with this patient on 06/21/2021 Medical Condition(s): Falls Senior Living For: Medication Management Physical Therapy For: Evalulation/Treatment Occupational Therapy For: Evaluation/Treatment POST DISCHARGE ORDERS: Activity Instructions for Disc: Activity as tolerated DIET AFTER DISCHARGE: Regular CERTIFICATION STATEMENT: Certification Statement: Based on the above finding, I certify that this patient is confined to the home and needs intermittent long-term care, physical therapy and/or speech therapy, or continues to need occupational therapy.~ This patient is under my care, and I have initiated the establishment of the plan of care.~ This patient will be followed by myself or a community physician who will periodically review the plan of care. DISCHARGE MEDICATIONS: Home Meds Active Scripts Lisinopril (LISINOPRIL) 40 Mg Tablet, 1 TAB PO DAILY for htn for 30 Days, #30 TAB 5 Refills Prov:OLIVIA TEJEDA MD 06/21/21 Metoprolol Succinate (METOPROLOL SUCCINATE ( XL )) 25 Mg Tab.er.24h, 1 TAB PO DAILY for htn for 30 Days, #30 TAB 5 Refills Prov:OLIVIA TEJEDA MD 06/21/21 Reported Medications Alprazolam (ALPRAZOLAM) 0.5 Mg Tablet, 1 TAB PO PRN DAILY PRN for ANXIETY / AGITATION, #30 TAB 06/20/21 Celecoxib (CELEBREX) 200 Mg Capsule, 200 MG PO BID for ., CAP 06/20/21 Amlodipine Besylate (AMLODIPINE BESYLATE) 10 Mg Tablet, 1 TAB PO DAILY for HTN, #30 TAB 5 Refills 06/20/21 Aspirin (ASPIRIN) 81 Mg Tab.chew, 81 MG PO DAILY for UNKNOWN, TAB 03/07/20 Omeprazole (OMEPRAZOLE) 40 Mg Capsule.dr, 1 CAP PO DAILY for UNKNOWN, #30 CAP 3 Refills 03/07/20 Atorvastatin Calcium (ATORVASTATIN CALCIUM) 10 Mg Tablet, 10 MG PO DAILY for FOR CHOLESTEROL, #30 TAB 0 Refills 03/07/20 Tramadol Hcl (TRAMADOL HCL) 50 Mg Tablet, 50 MG PO PRN Q6HRS PRN for PAIN, TAB 03/07/20 Discontinued Reported Medications Metoprolol Tartrate (METOPROLOL TARTRATE) 25 Mg Tablet, 1 TAB PO DAILY for HTN, #180 TAB 1 Refill 06/20/21 Methimazole (TAPAZOLE) 10 Mg Tablet, 10 MG PO DAILY for UNKNOWN, TAB 03/07/20 Cyclobenzaprine Hcl (CYCLOBENZAPRINE HCL) 10 Mg Tablet, 10 MG PO DAILY for UNKNOWN, TAB 03/07/20 Alprazolam (XANAX) 2 Mg Tablet, 2 MG PO PRN Q6HRS PRN for ANXIETY / AGITATION, TAB 0 Refills 03/07/20 Amlodipine Bes/Olmesartan Med (MICHAEL 10-20 MG TABLET) 1 Each Tablet, 1 TAB PO DAILY for UNKNOWN for 30 Days, #30 TAB 0 Refills 03/07/20 Lisinopril (LISINOPRIL) 20 Mg Tablet, 1 TAB PO DAILY for UNKNOWN, #30 TAB 5 Refills 03/07/20 Methimazole (TAPAZOLE) 5 Mg Tablet, 5 MG PO DAILY for UNKNOWN, TAB 03/07/20 OLIVIA TEJEDA MD Jun 21, 2021 12:01
== END 2021-06-21 14:25 | disposition home health service (06) ==
LOC: ER 17:20 → INTOOBSV 20:58 → 1 SOUTH 20:58
PROVIDERS: ADMIT Internal Medicine; ATTEND Internal Medicine
DX: R53.1 Weakness (principal); Z20.822 Contact with and (suspected) exposure to COVID-19; R62.7 Adult failure to thrive; D64.9 Anemia, unspecified; E03.9 Hypothyroidism, unspecified; E78.5 Hyperlipidemia, unspecified; E86.0 Dehydration; I10 Essential (primary) hypertension; I25.10 Atherosclerotic heart disease of native coronary artery without angina pectoris; J11.00 Influenza due to unidentified influenza virus with unspecified type of pneumonia; H90.5 Unspecified sensorineural hearing loss; K59.00 Constipation, unspecified; N17.9 Acute kidney failure, unspecified; N40.1 Benign prostatic hyperplasia with lower urinary tract symptoms; R29.6 Repeated falls; R32 Unspecified urinary incontinence; R33.8 Other retention of urine; R55 Syncope and collapse; Z23 Encounter for immunization; Z87.891 Personal history of nicotine dependence; Z97.4 Presence of external hearing-aid; Z98.41 Cataract extraction status, right eye; Z79.899 Other long term (current) drug therapy; Z98.890 Other specified postprocedural states; Z79.82 Long term (current) use of aspirin; Z98.42 Cataract extraction status, left eye; W19.XXXA Unspecified fall, initial encounter; Y92.009 Unspecified place in unspecified non-institutional (private) residence as the place of occurrence of the external cause; Y93.89 Activity, other specified
CPT/HCPCS: 36415; 70450; 71275; 72125; 74177; 80048; 80053; 80307; 81001; 83605; 83735; 83880; 84100; 84443; 84484; 85025; 85027; 85379; 87040; 87077; 87086; 87186; 87428; 93005; 97110; 97116; 97161; 97165; 97530; 97535; 99285; G0378; J7120; Q9967; U0003; G0379